=== PATIENT | female | born 1950 | race Two or more races ===

== ENCOUNTER 2019-03-04 12:22 | Emergency (ER) | payer MEDICARE, OTHER ==
[~2019-03-04] VITALS: Ht 157.5 cm; Wt 81.6 kg
[2019-03-04 12:31] VITALS: BP 150/74
[2019-03-04] MEDS ORDERED: HYDROCODONE/APAP 5/325MG 1 EACH TABLET PO ONE (13:30)
[2019-03-04] MEDS ORDERED: HYDROCODONE/APAP 5/325MG 1 EACH TABLET ONE (13:31)
== END 2019-03-04 14:04 | disposition home or self-care (01) ==
LOC: ER 12:25
DX: H66.92 Otitis media, unspecified, left ear (principal); I10 Essential (primary) hypertension; E11.9 Type 2 diabetes mellitus without complications

== ENCOUNTER 2019-03-30 18:02 | Emergency (ER) | payer MEDICARE, OTHER ==
[~2019-03-30] VITALS: Ht 154.9 cm; Wt 63.5 kg
[2019-03-30 18:22] VITALS: BP 158/73
== END 2019-03-30 18:53 | disposition home or self-care (01) ==
LOC: ER 18:07
DX: H60.92 Unspecified otitis externa, left ear (principal); I10 Essential (primary) hypertension; E11.9 Type 2 diabetes mellitus without complications
CPT/HCPCS: Z7502